=== PATIENT | male | born 1955 | race Caucasian/White ===

== ENCOUNTER 2018-08-17 19:42 | Emergency (ER) | payer OTHER ==
[~2018-08-17] VITALS: Ht 177.8 cm; Wt 98.0 kg
[2018-08-17 19:49] VITALS: BP 0/0
== END 2018-08-17 19:49 ==
LOC: M.ERS 19:42 → EDBD 19:42 → M.ERS 19:49
DX: I46.9 Cardiac arrest, cause unspecified (principal); I10 Essential (primary) hypertension